=== PATIENT | female | born 1980 | race Two or more races ===

== ENCOUNTER → 2018-01-12 | Outpatient (CLI) | payer OTHER ==
[2018-01-13 09:46] LABS: RUBEOLA (MEASLES) IGG >300.0 AU/mL (Immune >29.9)
== END | disposition home or self-care (01) ==
LOC: EMPHLTH 10:46
PROVIDERS: ATTEND Internal Medicine
DX: Z02.1 Encounter for pre-employment examination (principal)
CPT/HCPCS: 86706; 86735; 86762; 86765; 86787

== ENCOUNTER 2018-10-26 08:35 | Emergency (ER) | payer OTHER ==
[~2018-10-26] VITALS: Ht 154.9 cm; Wt 57.3 kg
[2018-10-26 09:15] VITALS: BP 115/87
[2018-10-26] MEDS ORDERED: BENZONATATE 100 MG CAPSULE PO ONE (09:15)
== END 2018-10-26 09:31 | disposition home or self-care (01) ==
LOC: EMS 08:35
DX: J04.10 Acute tracheitis without obstruction (principal)